=== PATIENT | male | born 1995 | race Caucasian/White ===

== ENCOUNTER 2017-01-21 20:16 | Emergency (ER) | payer OTHER ==
[2017-01-21] MEDS ORDERED: ACETAMINOPHEN 325 MG TABLET PO ONE (21:19)
[2017-01-21] MEDS ORDERED: IBUPROFEN 600 MG TABLET PO ONE (21:19)
[2017-01-21] MEDS ORDERED: AMOXICILLIN TR/POT CLAVULANATE 500-125 MG TAB PO ONE (21:19)
--- NOTE | 2017-01-21 21:20 | ER Document Report ---
ED General - General Chief Complaint: Dog Bite Stated Complaint: POSSIBLE DOG BITE Time Seen by Provider: 01/21/17 20:36 Notes: Patient is a 21 year old male without past medical history, obtain all immunizations who presents after being bitten by his friend's dog. Apparently the dog bit his right wrist in 3 distinct locations causing several small lacerations. He does note a dull, constant, aching pain to the wrist. Moving there is worsens the pain. He has not tried anything to improve the pain. He denies any additional injuries or other areas of bites. The dog is up-to-date on all immunizations. - Related Data Allergies/Adverse Reactions: No Known Allergies Allergy (Verified 01/21/17 20:19) Past Medical History - General Information source: Patient - Social History Smoking Status: Never Smoker Frequency of alcohol use: None Drug Abuse: None Lives with: Spouse/Significant other Family History: Reviewed & Not Pertinent Patient has suicidal ideation: No Patient has homicidal ideation: No Renal/ Medical History: Denies: Hx Peritoneal Dialysis Review of Systems - Review of Systems Notes: Constitutional: Negative for fever. Eyes: Negative for visual changes. ENT: Negative for facial injury Cardiovascular: Negative for chest injury. Respiratory: Negative for shortness of breath. Gastrointestinal: Negative for abdominal injury. Genitourinary: Negative for genital injury Musculoskeletal: Negative for back injury. Skin: Positive for laceration/abrasions. Neurological: Negative for head injury. Positive Physical Exam - Vital signs Vitals: Temp Pulse Resp BP Pulse Ox 98.3 F 66 16 143/82 H 96 01/21/17 20:23 01/21/17 20:23 01/21/17 20:23 01/21/17 20:23 01/21/17 20:23 Interpretation: Hypertensive Notes: PHYSICAL EXAMINATION: GENERAL: Well-appearing, well-nourished and in no acute distress. HEAD: Atraumatic, normocephalic. EYES: sclera anicteric, conjunctiva are normal. ENT: Moist mucous membranes. NECK: Normal range of motion LUNGS: Normal work of breathing HEART: 2+ radial pulses bilaterally EXTREMITIES: Full wrist flexion extension on the right. RMU motor and sensory distribution is intact. Full flexion-extension of all digits the right hand against resistance NEUROLOGICAL: No focal neurological deficits. Moves all extremities spontaneously and on command. PSYCH: Normal mood, normal affect. SKIN: Warm, Dry, normal turgor, multiple superficial lacerations to the right wrist without any deep penetration. Course - Re-evaluation Re-evalutation: 01/21/17 21:18 Patient presents with 3 small lacerations to his right wrist sustained from a dog bite. Bleeding is controlled. Tetanus is already up-to-date. This is a known dog and is up-to-date on its immunizations. Patient is full flexion extension of the wrist. RMU motor and sensory distribution is intact. Full flexion and extension in all digits of right hand against resistance. Wounds have been cleaned and dressed. Augmentin prophylaxis has been started. At this time will discharge with return precautions and follow-up recommendations. Verbal discharge instructions given a the bedside and opportunity for questions given. Medication warnings reviewed. Patient is in agreement with this plan and has verbalized understanding of return precautions and the need for primary care follow-up in the next 24-72 hours. - Vital Signs Vital signs: Temp Pulse Resp BP Pulse Ox 97.2 F 72 16 126/70 H 97 01/21/17 21:53 01/21/17 21:53 01/21/17 20:23 01/21/17 21:53 01/21/17 21:53 Discharge - Discharge Clinical Impression: Dog bite of right wrist Qualifiers: Encounter type: initial encounter Qualified Code(s): S61.551A - Open bite of right wrist, initial encounter Condition: Good Disposition: HOME, SELF-CARE Additional Instructions: Please monitor very closely for any signs of infection from your dog bite including spreading redness from the area, pus from the wound, or worsening pain. Clean the area twice daily with soap and water and then apply topical antibiotic ointment. Please take all the antibiotics that you were prescribed until they are gone. Follow-up with your primary care physician as needed. Prescriptions: Amox Tr/Potassium Clavulanate [Augmentin 875-125 Tablet] 1 tab PO BID 5 Days tablet Referrals: JUAN GARCÍA DO [Primary Care Provider] - Follow up as needed
[2017-01-21 22:05] VITALS: BP 126/70
== END 2017-01-21 22:08 | disposition home or self-care (01) ==
LOC: ER 20:16
DX: S61.551A Open bite of right wrist, initial encounter (principal); W54.0XXA Bitten by dog, initial encounter
CPT/HCPCS: 99283